=== PATIENT | male | born 1980 | race Caucasian/White ===

== ENCOUNTER 2017-12-15 14:59 | Emergency (ER) | payer OTHER ==
[~2017-12-15] VITALS: Ht 188 cm; Wt 95.3 kg
[2017-12-15 15:11] VITALS: BP 110/72
== END 2017-12-15 15:58 | disposition home or self-care (01) ==
LOC: ER 15:03
DX: M22.2X2 Patellofemoral disorders, left knee (principal); M25.462 Effusion, left knee
CPT/HCPCS: 99283; A4606; Z7610

== ENCOUNTER 2018-01-13 16:47 | Emergency (ER) | payer OTHER ==
[~2018-01-13] VITALS: Ht 188 cm; Wt 95.3 kg
[2018-01-13 16:58] VITALS: BP 130/75
== END 2018-01-13 17:24 | disposition home or self-care (01) ==
LOC: ER 16:48
DX: K08.89 Other specified disorders of teeth and supporting structures (principal); Z90.89 Acquired absence of other organs; F17.200 Nicotine dependence, unspecified, uncomplicated; Z88.8 Allergy status to other drugs, medicaments and biological substances
CPT/HCPCS: 99283; A4606; Z7610